=== PATIENT | female | born 1965 | race Caucasian/White ===

== ENCOUNTER → 2017-03-03 | Outpatient (CLI) | payer BC | END | disposition home or self-care (01) | LOC: C.RDSM 10:00 | PROVIDERS: ATTEND Orthopaedic Surgery Sports Medicine | DX: M25.552 Pain in left hip (principal); M54.5 Low back pain ==

== ENCOUNTER → 2017-03-10 | Outpatient (CLI) | payer BC ==
--- NOTE | 2017-03-10 14:44 | DIAGNOSTIC IMAGING REPORT ---
PELVIS WITHOUT CONTRAST (MRI) CLINICAL HISTORY: Low back pain. COMPARISON STUDY: Pelvis and lumbar spine radiographs March 03, 2017. TECHNIQUE: Utilizing a 1.5 Elyse magnet and dedicated coil, multiplanar, multi echo imaging of the pelvis and hips was performed without intravenous or intra-articular contrast. FINDINGS: The sacroiliac joints are intact. There is no suspicious marrow replacement or significant marrow edema within the pelvis or the hips. There is slight increased T2 signal within the left inferior aspect of the sacrum. This findings of doubtful clinical significance. There is no evidence for avascular necrosis of the hips. No mass or fluid collection shown adjacent to the pelvis or the hips. No pelvic lymphadenopathy is present. IMPRESSION: 1. No significant osseous abnormality of the pelvis or hips. No suspicious osseous lesions. 2. Slight increased T2 signal within the left inferior aspect of the sacrum which is likely degenerative. Electronically signed by: Mati Fitzgerald M.D. 03/10/2017 2:43 PM Dictated Date/Time: 03/10/2017 2:33 PM
== END | disposition home or self-care (01) ==
LOC: C.MRI 13:15
PROVIDERS: ATTEND Orthopaedic Surgery Sports Medicine
DX: M54.5 Low back pain (principal)